=== PATIENT | male | born 1945 | race Caucasian/White ===

== ENCOUNTER 2017-04-20 16:09 | Outpatient (CLI) | payer BC | END 2017-04-20 16:10 | disposition critical access hospital (66) | LOC: EMS 16:09 | PROVIDERS: ATTEND Surgery | DX: M25.552 Pain in left hip (principal); W01.198A Fall on same level from slipping, tripping and stumbling with subsequent striking against other object, initial encounter; Y92.019 Unspecified place in single-family (private) house as the place of occurrence of the external cause | CPT/HCPCS: A0425; A0429 ==

== ENCOUNTER 2017-04-20 16:29 | Observation (INO) | payer BC ==
--- NOTE | 2017-04-20 17:41 | XRAY Preliminary Report ---
Exam: XR Hip w/Pelvis 2-3V LT IMPRESSION: No definite pelvis or left hip fracture. [facility] SITE ID: [id number]
--- NOTE | 2017-04-20 17:44 | XRAY Report ---
EXAM: LEFT HIP AND PELVIS RADIOGRAPHY EXAM DATE: 04/20/2017 05:13 PM. HISTORY: Fall, left lateral hip pain. COMPARISONS: None. TECHNIQUE: 1 view of the pelvis and 1 view of the hip. FINDINGS: Bones: Patient is slightly rotated. No obvious pelvis or hip fracture seen. Joints: The bilateral hip, pubis symphysis, and sacroiliac joints are preserved. Soft Tissues: Aortic, iliac and femoral artery calcifications noted. IMPRESSION: No definite pelvis or left hip fracture. [facility] Referring Provider Line: [phone] SITE ID: [id number]
[2017-04-20] MEDS ORDERED: ACETAMINOPHEN 325 MG TABLET PO STA (18:14)
[2017-04-20] MEDS ORDERED: ACETAMINOPHEN 325 MG TABLET PO ONE (18:19)
[2017-04-20] MEDS ORDERED: IBUPROFEN 600 MG TABLET PO STA (18:21)
[2017-04-20] MEDS ORDERED: IBUPROFEN 600 MG TABLET PO ONE (18:28)
--- NOTE | 2017-04-20 19:29 | XRAY Preliminary Report ---
Exam: XR Femur 2V LT IMPRESSION: Negative femur radiography. [facility] SITE ID: [id number]
--- NOTE | 2017-04-20 19:32 | XRAY Report ---
EXAM: LEFT FEMUR RADIOGRAPHY EXAM DATE: 04/20/2017 07:01 PM. CLINICAL HISTORY: Left leg pain. COMPARISON: None. TECHNIQUE: 2 views. FINDINGS: Bones: Normal. No fracture or bone lesion. Joints: The visualized hip and knee joints are normal. No effusions. Soft Tissues: There are vascular calcifications. IMPRESSION: Negative femur radiography. [facility] Referring Provider Line: [phone] SITE ID: [id number]
--- NOTE | 2017-04-20 19:45 | CT Report ---
EXAM: CT BONY PELVIS WITHOUT CONTRAST EXAM DATE: 04/20/2017 06:41 PM. CLINICAL HISTORY: L hip pain neg plain films, unable to walk. COMPARISON: None. TECHNIQUE: Thin-section axial images were acquired of the pelvis without contrast. Post-processing: C oronal and sagittal reformats. Other: None. In accordance with CT protocol optimization, one or more of the following dose reduction techniques w ere utilized for this exam: automated exposure control, adjustment of mA and/or KV based on patient s ize, or use of iterative reconstructive technique. FINDINGS: Bones: There is minimally displaced, coronally oriented fracture through the left iliac bone. Fractur e line extends inferiorly, with an oblique component extending to the acetabular roof and pubic root, and a coronal oblique oriented component through the acetabular roof and medial wall of the acetabul um. No evidence of obturator ring fracture. Sacroiliac Joints: There is fusion of the sacroiliac joints. Symphysis Pubis: There is osteitis pubis. Right Hip: No evidence of dislocation. Left Hip: dislocation. Musculature: There may be mild relative enlargement of the left gluteal musculature. Pelvic Cavity: There is an infrarenal, aortic aneurysm which measures 4.1 cm in AP diameter. There is a partially visualized disk is within the left abdomen IMPRESSION: 1. There is minimally displaced left acetabular fracture. There is a coronally oriented fracture exte nding to the iliac wing. At the acetabular roof, there is an obliquely oriented component of the frac ture which extends through the pubic root, and coronally oriented component extending through the med ial wall of the acetabulum. No obturator ring fracture is seen. Findings are likely closest to an ant erior column with posterior nate-transverse acetabular fracture. 2. There is no evidence of dislocation. 3. There is fusion of the sacroiliac joints. 4. There is an infrarenal abdominal aortic aneurysm which measures up to 4.0 cm in AP diameter. 5. There is a partially imaged viscus measuring approximately 6 x 5 cm within the left lower quadrant . This could represent partially visualized stomach, focal dilated loop of bowel, or complex renal cy st. Comparison with prior imaging is recommended for further characterization of these intra-abdomina l findings. [facility] Referring Provider Line: [phone] SITE ID: [id number]
[2017-04-20 20:23] LABS: BASOPHILS % (AUTO) 0.2 %; EOSINOPHILS % (AUTO) 0.2 %; HCT - HEMATOCRIT 39.2 % (42.0-52.0); HGB - HEMOGLOBIN 12.8 g/dL (14.0-18.0); LYMPHOCYTES # (AUTO) 1.8 10^3/uL (1.5-3.5); LYMPHOCYTES % (AUTO) 11.7 %; MEAN CORPUSCULAR HEMOGLOBIN 29.2 pg (27.0-31.0); MEAN CORPUSCULAR HGB CONC 32.5 g/dL (32.0-36.0); MEAN CORPUSCULAR VOLUME 89.8 fL (80.0-94.0); MEAN PLATELET VOLUME 7.9 fL (7.4-11.4); MONOCYTES # (AUTO) 1.1 10^3/uL (0.0-1.0); NEUTROPHILS # (AUTO) 12.4 10^3/uL (1.5-6.6); NEUTROPHILS % (AUTO) 80.9 %; RED BLOOD COUNT 4.37 10^6/uL (4.70-6.10); RED CELL DISTRIBUTION WIDTH 14.8 % (12.0-15.0); UNCORRECTED WHITE BLOOD COUNT 15.4 x10^3/uL; WHITE BLOOD COUNT 15.4 x10^3/uL (4.8-10.8)
[2017-04-20 20:35] LABS: ALBUMIN/GLOBULIN RATIO 1.2 (1.0-2.2); BILIRUBIN,TOTAL 0.2 mg/dL (0.2-1.0); CREATININE 0.8 mg/dL (0.6-1.2); TOTAL PROTEIN 6.5 g/dL (6.7-8.2)
[2017-04-20 20:38] LABS: PT - PROTHROMBIN TIME 11.1 secs (9.9-12.6)
--- NOTE | 2017-04-20 21:50 | ED Physician Documentation ---
History of Present Illness - Stated complaint Stated Complaint: L HIP PX - Chief complaint Chief Complaint: Ext Problem - History obtained from History obtained from: Patient - Additonal information Additional information: This patient is a 71-year-old man who currently lives at home. He is . He presents with a complaint of left-sided hip pain. He was in a garbage can trying to compress it down with his feet when he briefly by. He swatted at the [place] and fell outward landing on the left hip. He complains of left hip pain worse with movement and better with rest. He has been unable to ambulate on the left hip since the injury. He denies any injury to the head, neck, chest or abdomen. He denies any preceding medical symptoms. Review of systems: For pertinent positive and negatives in the review of systems please see the history of present illness, otherwise all other systems have been reviewed and are negative. Dragon disclaimer: Parts of this medical record were created using voice recognition technology. Because of the inherent limitations of this system, occasional same sounding word substitutions do occur and persist despite proofreading. Please read the document for context. Review of Systems Constitutional: denies: Fever, Myalgias Eyes: denies: Decreased vision Cardiac: denies: Chest pain / pressure, Palpitations Respiratory: reports: Cough. denies: Dyspnea GI: denies: Abdominal Pain, Abdominal Swelling PD PAST MEDICAL HISTORY - Past Medical History Past Medical History: Yes Cardiovascular: Hypertension, Coronary artery disease, Murmur, Other Respiratory: Other GI: Ulcers, Hepatitis HEENT: Chronic hearing loss - Past Surgical History Past Surgical History: No - Present Medications Home Medications: Ambulatory Orders Medication Instructions Recorded Confirmed Clopidogrel [Plavix] 75 mg PO DAILY 10/29/13 04/20/17 Lisinopril [Zestril] 10 mg PO DAILY 10/29/13 04/20/17 Pantoprazole Sodium [Protonix] 40 mg PO DAILY 10/29/13 04/20/17 Rosuvastatin [Crestor] 20 mg PO QPM 10/29/13 04/20/17 Aspirin [Aspir 81] 81 mg PO DAILY 11/01/13 04/20/17 - Allergies Allergies/Adverse Reactions: Allergies Allergy/AdvReac Type Severity Reaction Status Date / Time No Known Drug Allergies Allergy Verified 04/20/17 16:46 - Social History Does the pt smoke?: Yes Smoking Status: Current every day smoker Does the pt drink ETOH?: No Does the pt have substance abuse?: No - Immunizations Immunizations are current?: Yes - POLST Patient has POLST: No PD ED PE NORMAL - Vitals Vital signs reviewed: Yes - General General: Alert and oriented X 3, No acute distress, Well developed/nourished, Other (Thin male no apparent distress.) - HEENT HEENT: Atraumatic, PERRL - Neck Neck: Supple, no meningeal sign - Cardiac Cardiac: RRR - Respiratory Respiratory: No respiratory distress, Clear bilaterally - Abdomen Abdomen: Normal bowel sounds, Non tender, Non distended - Back Back: No CVA TTP - Derm Derm: Normal color, Warm and dry, No rash, Other - Extremities Extremities: Other (On examination there is some tenderness of the left lateral hip. Range of motion elicits some pain. There is no shortening of the leg on examination) - Neuro Neuro: Alert and oriented X 3, batch maker 2-12 intact, No motor deficit, No sensory deficit - Psych Psych: Normal mood, Normal affect Results - Vitals Vitals: Vital Signs - 24 hr 04/20/17 04/20/17 16:33 21:47 Temperature 36.8 C 37.0 C Heart Rate 80 76 Respiratory 16 18 Rate Blood Pressure 117/95 H 142/74 H O2 Saturation 96 98 Oxygen O2 Source Room air - Labs Labs: Laboratory Tests 04/20/17 04/20/17 04/20/17 20:15 20:15 20:15 WBC 15.4 H RBC 4.37 L Hgb 12.8 L Hct 39.2 L MCV 89.8 MCH 29.2 MCHC 32.5 RDW 14.8 Plt Count 240 MPV 7.9 Neut # 12.4 H Lymph # 1.8 Atkinson # 1.1 H Eos # 0.0 Baso # 0.0 Absolute Nucleated RBC 0.01 Nucleated RBCs 0.0 PT 11.1 INR 1.0 Sodium 138 Potassium 4.0 Chloride 102 Carbon Dioxide 28 Anion Gap 8.0 BUN 14 Creatinine 0.8 Estimated GFR (MDRD) 95 Glucose 161 H Calcium 9.0 Total Bilirubin 0.2 AST 18 ALT 13 Alkaline Phosphatase 103 Total Protein 6.5 L Albumin 3.5 Globulin 3.0 Albumin/Globulin Ratio 1.2 Lipase 12 L PD MEDICAL DECISION MAKING - ED course Complexity details: reviewed old records ED course: Patient is a 71-year-old male who fell on his left hip. Although he has no leg length discrepancy there is some pain on range of motion testing. I had hoped that he a greater trochanteric contusion. Plain films of the pelvis and hip were ordered and there is no evidence of any obvious abnormality. We tried to get the patient up to stand but he is reticent to do so which is suggesting that there is a more serious underlying injury. CT of the pelvis was done the CT scan shows a nondisplaced anterior acetabular fracture. The case was discussed with orthopedics transportation lead Dr. Ware. Who feels that the patient probably will need admission and placement based on the injury. He will probably need long-term nonweightbearing status. The patient was agreeable to be admitted. I discussed the case with the hospitalist who will see the patient and will attempt admission and hopefully uneventful transfer to a acute care facility. The was also found to have incidental 4 cm intra-abdominal aneurysm. Chest x-ray shows no acute intrathoracic disease and EKG shows normal sinus rhythm with left bundle branch block and PVCs. Disposition: Admission Clinical impression: 1. Left sided anterior column acetabular fracture Departure - Departure Disposition: ED Place in Observation Discharge Date/Time: 04/20/17 23:03
--- NOTE | 2017-04-20 22:08 | XRAY Preliminary Report ---
Exam: XR Chest 1 View IMPRESSION: 1. Large lung volumes with borderline heart size. 2. No acute abnormality seen. [facility] SITE ID: [id number]
--- NOTE | 2017-04-20 22:11 | XRAY Report ---
EXAM: CHEST RADIOGRAPHY EXAM DATE: 04/20/2017 09:50 PM. CLINICAL HISTORY: Fall, acetabular fracture. Preoperative exam for fracture repair. COMPARISON: 07/07/2009. TECHNIQUE: 1 view. FINDINGS: Lungs/Pleura: Large lung volumes. No alveolar consolidation or pleural effusion. No pneumothorax. Mediastinum: Heart size upper normal. Aortic atherosclerosis. Other: Thoracic dextroscoliosis. Surgical clips at the epigastric area. IMPRESSION: 1. Large lung volumes with borderline heart size. 2. No acute abnormality seen. [facility] Referring Provider Line: [phone] SITE ID: [id number]
[2017-04-20] MEDS ORDERED: ONDANSETRON ODT 4 MG TABLET TL PRN (22:14)
[2017-04-20] MEDS ORDERED: TEMAZEPAM 15 MG CAPSULE PO PRN (22:14)
[2017-04-20] MEDS ORDERED: SODIUM CHLORIDE FLUSH 0.9% 10 ML SYRINGE IVP PRN (22:14)
[2017-04-20] MEDS ORDERED: MORPHINE 2 MG/ML CARPUJECT IVP PRN (22:14)
[2017-04-20] MEDS ORDERED: oxyCODONE 5 MG TABLET PO PRN (22:14)
[2017-04-20] MEDS ORDERED: ONDANSETRON 4 MG/2 ML VIAL IVP PRN (22:14)
[2017-04-21] MEDS: ACETAMINOPHEN 325 MG TABLET PO SCH ×3 (00:22→10:57)
[2017-04-21] MEDS: ENOXAPARIN 40 MG/0.4 ML SYRINGE SUBQ SCH ×2 (00:23→08:36)
--- NOTE | 2017-04-21 03:41 | HISTORY & PHYSICAL EXAMINATION ---
DATE OF ADMISSION: 04/20/2017 PRIMARY CARE PROVIDER: Tony Peraza MD ADMITTING PROVIDER: Lakeshia Pa MD CHIEF COMPLAINT: Inability to ambulate after falling off a garbage can. HISTORY OF PRESENT ILLNESS: He is a 71-year-old white male who stands on his garbage every Friday nig ht to compress it into the garbage can, to be able to eat more in. His has warned him repeatedly to stop doing that because one of the times the garbage can is going to tip over and he was going to fall. He did so tonight. Landed on his side, and ever since then, it hurts to walk using his left le g. He does have a history of osteoporosis with a vertebral compression fracture in 2013. The vertebra l compression fracture was from lifting a lawnmower that had gone downhill, and he tried to lift it u p out of the shrubbery. He had a TENS unit for that. PSA were normal. No serum protein electrophoresi s was done at that time, and it was felt to be a simple vertebral compression fracture from an osteop orosis. With this fall, he was brought to the emergency room by his family. He has a left acetabular fracture. Dr. Ware, Orthopedics, has reviewed the films with the ER. He is not a surgical candidate. W e are placing him in observation status for pain management control, PT, OT evaluation to assess with this patient's needs to be in the outpatient setting. PAST MEDICAL HISTORY: 1. A small heart attack in 1995 with subsequent cardiomyopathy. The and son feel that Dad did no t have a heart attack and that he had "just a cardiomyopathy." Over time, his ejection fraction becam e normal. An echocardiogram done July 2009 while being admitted for stroke was with a normal ejec tion fraction and no valvular heart disease. 2. Peripheral vascular disease with diminished circulation to the legs and a leg ulcer in the past. 3. Interstitial lung disease but no history of COPD. 4. Prior history of stroke 07/2009, left occipital ischemic stroke. Presented as sudden seizure, subs equent blurred vision. Had quite a bit of memory loss, had to learn how to walk again, but has had no residuals according to the family other than mild memory loss. He was on Dilantin and off medication s since October 2013. EEG was negative in 2013 in evaluation. 5. Peptic ulcer disease with massive GI hemorrhage in 1984. He had a Billroth-II and an anastomosis. He received quite a bit of blood transfusions at that time. He had microcytic anemia again in 2013 an d was evaluated with an EGD and colonoscopy in 10/2013. Colonoscopy had a benign tubular adenoma. EGD showed a stomach remnant and an anastomosis that were incredibly friable, but biopsies were negative . Small bowel was negative for celiac disease. He is to be remaining on proton pump inhibitors. No no nsteroidal therapy. He can stand his Plavix. If he has further bleeding, he was to be on Carafate. 6. Hypertension. 7. Hepatitis C with abnormal function studies seen on 2005 pneumonia admission. Subsequent evaluation showed a normal AFP, normal ultrasound and he has felt to have prior infection with Hep C, but not c urrently infected. 8. Benign prostatic hypertrophy on Flomax. 9. Vertebral compression fracture after lifting a lawnmower. 10. Infrarenal abdominal aortic aneurysm at 4.4 to 4.5 cm. 11. Pneumonia 2005. ALLERGIES: NO KNOWN DRUG ALLERGIES. MEDICATIONS: List per Dr. Peraza's office is. 1. Plavix 75 mg a day. 2. Aspirin 81 mg a day. 3. Lisinopril 20 mg a day. 4. Crestor 20 mg a day. 5. Protonix 40 mg a day. 6. Uroxatral 10 mg daily. 7. Ferrous gluconate 1 tablet twice a day. 8. Vitamin D 1 tablet daily. 9. Most recently was on Debrox for cerum problems. For this most recent visit, Dr. Peraza was reviewing his medication list and realized that none had been filled for probably 2 years. The patient stated he had been noncompliant with medications and m ost recently has only resumed, as far as knows, Lisinopril and Crestor. He is not taking anythin g else including the Plavix. SOCIAL HISTORY: He smokes anywhere from 0.5 to 1 pack per day since the age of 18[address] [facility] . [place] They have 1 son. He has no history of alcohol abuse. Denies any history of recreational substance abuse. He currently does n ot drive because his car has been broken down, but family is pretty relieved. Visual problems lead [facility] to be alarmed when he drives too much. FAMILY HISTORY: Father of lung cancer. He at age 77. Mom at age 75 of multiple medical problems including lung disease and poor health. One brother, he does not know any more. One sister of diabetic complications at the age of 60. His son is healthy. REVIEW OF SYSTEMS GENERAL: Shows him to be a generally stubborn, very picky eater, white male who does not want to take medicines and continues to smoke. ENT: Blurred vision ever since his stroke. His eyeball deviates. He has not had any problems with spe ech or swallowing since the stroke. Deaf and wears hearing aids. PULMONARY: Chronic daily cough, nonproductive. Both son and daughter, feel that he is not short of br eath from coughing or lung disease. No hemoptysis. CARDIAC: No problems ever since he had that cardiomyopathy. Denies edema, orthopnea, chest pain or pa lpitations. JOINTS: His main problem: Back hurts, joints are stiff, hip hurts. SKIN: No new lesions. No new bruises. PSYCHIATRIC: Described as very, very stubborn. says that you cannot make him do anything. She do ubts that he will cooperate with physical therapy and occupational therapy. CENTRAL NERVOUS SYSTEM: Seizures and syncope with a stroke in 2008. None since. Mild memory loss. It was moderate in the past, but it has recovered remarkably. PHYSICAL EXAMINATION: VITAL SIGNS: On examination, temperature is 36.3, pulse is 67, blood pressure 149/73, respirations 16 , 93% on room air. GENERAL: He is an exceedingly slender, middle aged white male who looks older than stated age, in no acute distress, as long as he is not standing. As he sits in the gurney in the emergency room, he is quite comfortable. HEAD AND NECK: Shows him to be moderately deaf, full head of hair, low, hoarse voice. No facial asymm etry. Tongue midline, no fasciculations. NECK: Shotty adenopathy with radiated carotid bruits from the heart. CARDIAC: Has a regular rate and rhythm with a systolic ejection murmur. LUNGS: Very quiet with diminished breath sounds throughout without crackles, rhonchi, or wheezing. No increased respiratory effort. No respiratory distress. ABDOMEN: Soft, nontender. He has an incision that is healed closed without hernia. No masses. Normal bowel sounds. Bilateral femoral bruits present. EXTREMITIES: Knobby deformities of osteoarthritis without clubbing, cyanosis, or edema. NEUROLOGICAL: He is deaf, but alert and oriented to person, place and time. No other cranial nerve de ficit, with one not tested. No focal loss of strength. I am not having him stand. He does not have tr emors. Hand grasp strength is normal and plantar and dorsiflexion strength testing is normal. LABORATORIES: CMP is normal except for a random glucose of 161. White cell count is 15.4, hemoglobin 12.8, hematocrit 39.2, MCV 89. When he was anemic with his EGD and colonoscopy in 2013, his hematocri t was 27. INR is 1. Hip/pelvis x-ray, pelvic CT, chest x-ray confirmed the acetabular fracture. An infrarenal aortic aneu rysm. Large lung volumes, but no infiltrate. ASSESSMENT/PLAN: 1. Left acetabular fracture associated with #2. We will place in observation for pain management. Hav e PT and OT assess him in the morning and teach him appropriate use of nonweightbearing on the nonaff ected leg. Will need to be assessed for durable medical goods. procurement services manager will need to sit down and talk to the patient as will case management to help them make the best decision with regards to w here he needs to go. Whether it is with home care or to a [facility] facility. 2. Fall from garbage can. 3. Acute pain. Tylenol fixed dosing, Oxycodone p.r.n., no nonsteroidal therapy because of his ulcer d isease. 4. Tobacco abuse. His said there is no point in even discussing stopping smoking with him. He block s been told before, especially because of his stroke and heart history, but refuses to do so. Neverth eless nicotine patch offered to the patient, declined at this time. The patient also counseled to erin vargas. 5. Personal history of noncompliance. Counseled on the importance of risk reduction with regard to bl ood pressure, lipids and stopping smoking. To take his medications to reduce his risk of stroke or he art attack. At this time, we will try and resume all the medications indicated including the Plavix, lisinopril and statin. His other medical problems at this time appears stable and compensated as noted from the history of p resent illness. He does have a random elevated glucose. We will check A1c. JOB #: [id number] EXT JOB #:[id number]
[2017-04-21] MEDS ORDERED: SODIUM CHLORIDE FLUSH 0.9% 10 ML SYRINGE IVP SCH (06:00)
[2017-04-21 06:05] LABS: HEMOGLOBIN A1C 0.61 g/dL
[2017-04-21] MEDS ORDERED: PANTOPRAZOLE 40 MG TABLET PO SCH (07:00)
[2017-04-21] MEDS ORDERED: CLOPIDOGREL 75 MG TABLET PO SCH (09:00)
[2017-04-21] MEDS ORDERED: LISINOPRIL 5 MG TABLET PO SCH (09:00)
[2017-04-21] MEDS ORDERED: POLYETHYLENE GLYCOL 3350 17 GM PACKET PO SCH (09:00)
--- NOTE | 2017-04-21 11:11 | Discharge Plan ---
Discharge Plan Disposition: 01 Home, Self Care Diet: Regular Activity Restrictions: Non weight bearing LLE Shower Restrictions: No Driving Restrictions: No Assistance Devices: Walker Weight Bearing: No Weight (On Left leg x1wk) Additional Instructions or Follow Up instructions: You had a left acetabulum fracture and should be non weight bearing on that leg for the next week. You have been prescribed a walker and should use it at home. Please follow up with your PCP in one week and you maybe referred to orthopedics after that. No Smoking: If you smoke, Please STOP! Call for help.
[2017-04-21 11:20] LABS: BILIRUBIN,URINE NEGATIVE (NEGATIVE)
[2017-04-21 12:14] LABS: UR CULTURE IF IND NOT INDICATED; WBC,URINE 0-3 /HPF (0-3)
--- NOTE | 2017-04-21 12:29 | DISCHARGE SUMMARY ---
Discharge Summary Admit Date: 04/20/17 Discharge Date: 04/21/17 Discharging Provider: Tobias Marin MD Primary Care Provider: Tony Peraza MD Code Status: Attempt Resuscitation Condition at Discharge: Good Discharge Disposition: 01 Home, Self Care - DIAGNOSES Admission Diagnoses: 1. Left acetabular fracture 2. Fall from garbage can 3. Acute pain 4. Tobacco abuse 5. Personal history of noncompliance Discharge Diagnoses with Status of Each Condition: 1. Left acetabular fracture 2. Tobacco abuse - HPI History of Present Illness: The patient is a 71-year-old white male who stands on his garbage every Friday night to compress it and to the garbage can, to be able to get more in. His has warned him repeatedly to stop doing that because one of these times the garbage can is going to tip over and he is going to fall. He did so tonight. Landed on his side, and ever since then, it hurts to walk using his left leg. He does have a history of osteoporosis with a vertebral compression fracture in 2013. The vertebral compression fracture was from lifting a lawnmower that had gone downhill, and he tried to lift it up out of the shrubbery. He had a TENS unit for that. He had a normal PSA, serum protein electrophoresis at that time and it was felt to be a simple vertebral compression fracture from osteoporosis. With this fall he was brought to the emergency department by his family. He has a left acetabular fracture. Dr. Ware, orthopedics, has reviewed the films in the emergency department. He is not a surgical candidate. We are placing him in observation status for pain management control, PT, OT evaluation to assess with the patient's needs in the outpatient setting. - HOSPITAL COURSE Hospital Course: The patient was placed in observation for a left acetabular fracture do to intractable pain and difficulty ambulating. The patient was seen by PT and it was determined the patient could go home. He was told to not bear weight on his left leg for at least one week. He will then followup with his primary care physician and possibly with orthopedics if needed. The patient was given a front wheeled walker. The physical therapist had the patient walk up and down the halls she also had him do stairs and the patient was stable and did well. The patient was discharged home he was told to use Tylenol and Motrin for pain. Patient stated there was no pain when he was sitting still and not bearing weight on the left leg. He stated that as soon he would bear any weight on the left leg there was excruciating pain. Again the patient was told not to bear weight on his left leg for at least one week. - ALLERGIES Allergies/Adverse Reactions: Allergies Allergy/AdvReac Type Severity Reaction Status Date / Time No Known Drug Allergies Allergy Verified 04/20/17 16:46 - MEDICATIONS Home Medications: Ambulatory Orders Medication Instructions Recorded Confirmed Clopidogrel [Plavix] 75 mg PO DAILY 10/29/13 10/29/13 Aspirin [Aspir 81] 81 mg PO DAILY 11/01/13 11/01/13 Lisinopril [Zestril] 20 mg PO BID 04/21/17 04/21/17 Pantoprazole [Protonix] 40 mg PO QDAC 04/21/17 04/21/17 Rosuvastatin Calcium [Crestor] 20 mg PO QPM 04/21/17 04/21/17 - PHYSICAL EXAM AT DISCHARGE General Appearance: positive: No acute distress, Alert Eyes Bilateral: positive: Normal inspection, PERRL, EOMI, No lid inflammation, Conjunctivae nml, No scleral icterus ENT: positive: ENT inspection nml, Pharynx nml, No signs of dehydration. negative: Purulent nasal drainage, Pharyngeal erythema, Oral lesions Neck: positive: Nml inspection, Thyroid nml, No JVD, Trachea midline. negative : Thyromegaly, Lymphadenopathy (R), Lymphadenopathy (L), Carotid bruit, Tracheal deviation Respiratory: positive: Chest non-tender, No respiratory distress, Breath sounds nml. negative: Wheezes, Rales, Rhonchi Cardiovascular: positive: Regular rate & rhythm, No murmur, No gallop Peripheral Pulses: positive: 2+ Abdomen: positive: Non-tender, No organomegaly, Nml bowel sounds, No distention Back: positive: Nml inspection. negative: CVA tenderness (R), CVA tenderness (L ) Skin: positive: Color nml, No rash, Warm. negative: Cyanosis, Pallor Extremities: positive: No pedal edema, Other (Left lower extremity decreased range of motion around the hip with tenderness around the left acetabulum. No swelling, no erythema.) Neurologic/Psychiatric: positive: Oriented x3, CN's nml (2-12), Motor nml, Sensation nml, Mood/affect nml - LABS Result Diagrams: 04/20/17 20:15 04/20/17 20:15 Other Lab Results: Laboratory Results WBC 15.4 x10^3/uL (4.8-10.8) H 04/20/17 20:15 RBC 4.37 10^6/uL (4.70-6.10) L 04/20/17 20:15 Hgb 12.8 g/dL (14.0-18.0) L 04/20/17 20:15 Hct 39.2 % (42.0-52.0) L 04/20/17 20:15 MCV 89.8 fL (80.0-94.0) 04/20/17 20:15 MCH 29.2 pg (27.0-31.0) 04/20/17 20:15 MCHC 32.5 g/dL (32.0-36.0) 04/20/17 20:15 RDW 14.8 % (12.0-15.0) 04/20/17 20:15 Plt Count 240 10^3/uL (130-450) 04/20/17 20:15 MPV 7.9 fL (7.4-11.4) 04/20/17 20:15 Neut # 12.4 10^3/uL (1.5-6.6) H 04/20/17 20:15 Lymph # 1.8 10^3/uL (1.5-3.5) 04/20/17 20:15 [place] # 1.1 10^3/uL (0.0-1.0) H 04/20/17 20:15 Eos # 0.0 10^3/uL (0.0-0.7) 04/20/17 20:15 Baso # 0.0 10^3/uL (0.0-0.1) 04/20/17 20:15 Absolute Nucleated RBC 0.01 x10^3/uL 04/20/17 20:15 Nucleated RBCs 0.0 /100WBC 04/20/17 20:15 PT 11.1 secs (9.9-12.6) 04/20/17 20:15 INR 1.0 (0.8-1.2) 04/20/17 20:15 Sodium 138 mmol/L (135-145) 04/20/17 20:15 Potassium 4.0 mmol/L (3.5-5.0) 04/20/17 20:15 Chloride 102 mmol/L (101-111) 04/20/17 20:15 Carbon Dioxide 28 mmol/L (21-32) 04/20/17 20:15 Anion Gap 8.0 (6-13) 04/20/17 20:15 BUN 14 mg/dL (6-20) 04/20/17 20:15 Creatinine 0.8 mg/dL (0.6-1.2) 04/20/17 20:15 Estimated GFR (MDRD) 95 (>89) 04/20/17 20:15 Glucose 161 mg/dL (70-100) H 04/20/17 20:15 Glycated Hemoglobin 6.2 % (4.6-6.2) 04/21/17 05:30 Estim Average Glucose 131 (70-100) H 04/21/17 05:30 Calcium 9.0 mg/dL (8.5-10.3) 04/20/17 20:15 Total Bilirubin 0.2 mg/dL (0.2-1.0) 04/20/17 20:15 AST 18 IU/L (10-42) 04/20/17 20:15 ALT 13 IU/L (10-60) 04/20/17 20:15 Alkaline Phosphatase 103 IU/L (42-121) 04/20/17 20:15 Total Protein 6.5 g/dL (6.7-8.2) L 04/20/17 20:15 Albumin 3.5 g/dL (3.2-5.5) 04/20/17 20:15 Globulin 3.0 g/dL (2.1-4.2) 04/20/17 20:15 Albumin/Globulin Ratio 1.2 (1.0-2.2) 04/20/17 20:15 Lipase 12 U/L (22-51) L 04/20/17 20:15 Urine Color YELLOW 04/21/17 11:00 Urine Clarity CLEAR (CLEAR) 04/21/17 11:00 Urine pH 6.0 PH (5.0-7.5) 04/21/17 11:00 Ur Specific [place] 1.020 (1.002-1.030) 04/21/17 11:00 Urine Protein NEGATIVE mg/dL (NEGATIVE) 04/21/17 11:00 Urine Glucose (UA) NEGATIVE mg/dL (NEGATIVE) 04/21/17 11:00 Urine Ketones NEGATIVE mg/dL (NEGATIVE) 04/21/17 11:00 Urine Occult Blood NEGATIVE (NEGATIVE) 04/21/17 11:00 Urine Nitrite NEGATIVE (NEGATIVE) 04/21/17 11:00 Urine Bilirubin NEGATIVE (NEGATIVE) 04/21/17 11:00 Urine Urobilinogen 0.2 (NORMAL) E.U./dL (NORMAL) 04/21/17 11:00 Ur Leukocyte Esterase NEGATIVE (NEGATIVE) 04/21/17 11:00 Urine RBC 0-5 /HPF (0-5) 04/21/17 11:00 Urine WBC 0-3 /HPF (0-3) 04/21/17 11:00 Ur Squamous Epith Cells FEW Squamous (<= Few) 04/21/17 11:00 Urine Bacteria None Seen /HPF (None Seen) 04/21/17 11:00 Urine Casts 0-2 Hyaline Casts /LPF 04/21/17 11:00 Urine Mucus Moderate Strands 04/21/17 11:00 Urine Culture Comments NOT INDICATED 04/21/17 11:00 - DIAGNOSTIC IMAGING Diagnostic Imaging Results: Final report reviewed Diagnostic Imaging Results Comments: Hip/pelvis x-ray, pelvic CT, chest x-ray confirmed the acetabular fracture. An infrarenal aortic aneurysm. Large lung volumes, but no infiltrates. - FOLLOW UP Follow Up: Patient was prescribed a front wheeled walker. He was told not to bear weight on his left leg for at least one week. He will followup with his primary care physician in one week. - TIME SPENT Time Spent in Discharge (Minutes): 35
[2017-04-21 15:00] VITALS: BP 103/65
[2017-04-21] MEDS ORDERED: ROSUVASTATIN 20 MG PO SCH (21:00)
[2017-04-21] MEDS ORDERED: ATORVASTATIN 40 MG TABLET PO SCH (21:00)
== END 2017-04-21 13:05 | disposition home or self-care (01) ==
LOC: EDUNIT# → ED 16:29 → OBS 22:14
PROVIDERS: ADMIT Specialist; ATTEND Internal Medicine
DX: S32.402A Unspecified fracture of left acetabulum, initial encounter for closed fracture (principal); W17.89XA Other fall from one level to another, initial encounter; I11.9 Hypertensive heart disease without heart failure; F17.210 Nicotine dependence, cigarettes, uncomplicated; N40.0 Benign prostatic hyperplasia without lower urinary tract symptoms; I73.9 Peripheral vascular disease, unspecified; I71.4 Abdominal aortic aneurysm, without rupture; Y93.E9 Activity, other interior property and clothing maintenance; Y92.008 Other place in unspecified non-institutional (private) residence as the place of occurrence of the external cause; Y99.8 Other external cause status; Z79.02 Long term (current) use of antithrombotics/antiplatelets; Z79.82 Long term (current) use of aspirin; Z79.899 Other long term (current) drug therapy; I25.2 Old myocardial infarction; Z86.73 Personal history of transient ischemic attack (TIA), and cerebral infarction without residual deficits; Z86.19 Personal history of other infectious and parasitic diseases; Z91.14 Patient's other noncompliance with medication regimen
CPT/HCPCS: 36415; 71010; 72192; 73502; 73552; 80053; 81001; 83036; 83690; 85025; 85610; 93005; 96372; 97116; 97162; 99283; 99284; A9270; G0378; G8978; G8979; G8980; J1650; 87086

== ENCOUNTER 2019-04-06 08:55 | Outpatient (CLI) | payer BC, OTHER ==
[2019-04-06 12:19] LABS: BASOPHILS # (AUTO) 0.1 10^3/uL (0.0-0.1); BASOPHILS % (AUTO) 0.5 %; EOSINOPHILS # (AUTO) 0.2 10^3/uL (0.0-0.7); EOSINOPHILS % (AUTO) 1.7 %; HGB - HEMOGLOBIN 9.5 g/dL (14.0-18.0); LYMPHOCYTES # (AUTO) 5.8 10^3/uL (1.5-3.5); MEAN CORPUSCULAR HEMOGLOBIN 25.1 pg (27.0-31.0); MEAN CORPUSCULAR HGB CONC 29.5 g/dL (32.0-36.0); MEAN CORPUSCULAR VOLUME 85.2 fL (80.0-94.0); MONOCYTES # (AUTO) 1.4 10^3/uL (0.0-1.0); MONOCYTES % (AUTO) 10.8 %; NEUTROPHILS # (AUTO) 5.4 10^3/uL (1.5-6.6); NEUTROPHILS % (AUTO) 41.6 %; PLT - PLATELET COUNT 350 10^3/uL (130-450); RED BLOOD COUNT 3.78 10^6/uL (4.70-6.10); RED CELL DISTRIBUTION WIDTH 17.6 % (12.0-15.0); WHITE BLOOD COUNT 12.9 x10^3/uL (4.8-10.8)
[2019-04-06 12:27] LABS: ALBUMIN 3.5 g/dL (3.2-5.5); ALBUMIN/GLOBULIN RATIO 1.2 (1.0-2.2); BILIRUBIN,TOTAL 0.5 mg/dL (0.2-1.0); CREATININE 0.6 mg/dL (0.6-1.2); TOTAL PROTEIN 6.5 g/dL (6.7-8.2)
[2019-04-06 13:10] LABS: PLATELET ESTIMATE, MANUAL NORMAL (130-450,000) (NORMAL); PLATELET MORPHOLOGY NORMAL APPEARANCE (NORMAL)
== END 2019-04-06 09:00 | disposition home or self-care (01) ==
LOC: LAB.N 08:55
PROVIDERS: ATTEND Internal Medicine Gastroenterology
DX: I10 Essential (primary) hypertension (principal); B19.20 Unspecified viral hepatitis C without hepatic coma; D50.9 Iron deficiency anemia, unspecified
CPT/HCPCS: 36415; 80053; 85025

== ENCOUNTER 2019-04-13 08:40 | Day surgery (SDC) | payer OTHER ==
[2019-04-13] MEDS ORDERED: LACTATED RINGERS 1,000 ML IV ONE (09:13)
[2019-04-13] MEDS ORDERED: LIDO GARGLE 30 ML BOTTLE ONE (09:41)
[2019-04-13] MEDS ORDERED: fentaNYL 250 MCG/5 ML VIAL IVP ONE (09:51)
[2019-04-13] MEDS ORDERED: MIDAZOLAM 2 MG/2 ML VIAL IVP ONE (09:51)
[2019-04-13] MEDS ORDERED: LIDO GARGLE 30 ML BOTTLE PO ONE (09:56)
[2019-04-13 12:03] VITALS: BP 151/72
== END 2019-04-13 08:41 | disposition home or self-care (01) ==
LOC: SDS 08:40
PROVIDERS: ATTEND Internal Medicine Gastroenterology
PROC: 0DBK8ZZ Excision of Ascending Colon, Via Natural or Artificial Opening Endoscopic (ICD-10-PCS; 2019-04-13)
PROC: 0DB68ZX Excision of Stomach, Via Natural or Artificial Opening Endoscopic, Diagnostic (ICD-10-PCS; principal; 2019-04-13 10:00)
PROC: 0DBN8ZZ Excision of Sigmoid Colon, Via Natural or Artificial Opening Endoscopic (ICD-10-PCS; 2019-04-13 10:00)
DX: K29.70 Gastritis, unspecified, without bleeding (principal); D12.2 Benign neoplasm of ascending colon; D12.5 Benign neoplasm of sigmoid colon; K63.5 Polyp of colon; D50.9 Iron deficiency anemia, unspecified; F17.210 Nicotine dependence, cigarettes, uncomplicated; E78.5 Hyperlipidemia, unspecified; I10 Essential (primary) hypertension; J84.9 Interstitial pulmonary disease, unspecified; I73.9 Peripheral vascular disease, unspecified; M81.0 Age-related osteoporosis without current pathological fracture; G47.00 Insomnia, unspecified; H91.90 Unspecified hearing loss, unspecified ear; H53.9 Unspecified visual disturbance; B19.20 Unspecified viral hepatitis C without hepatic coma; I25.10 Atherosclerotic heart disease of native coronary artery without angina pectoris; N40.0 Benign prostatic hyperplasia without lower urinary tract symptoms; Z79.82 Long term (current) use of aspirin; Z79.02 Long term (current) use of antithrombotics/antiplatelets; Z86.73 Personal history of transient ischemic attack (TIA), and cerebral infarction without residual deficits; Z87.11 Personal history of peptic ulcer disease
CPT/HCPCS: 43239; 45380; 45385; 87081; A9270; J3010; J7120

== ENCOUNTER 2019-05-14 09:40 | Outpatient (CLI) | payer OTHER | END 2019-05-14 09:41 | disposition home or self-care (01) | LOC: RT 09:40 | PROVIDERS: ATTEND Internal Medicine Gastroenterology | DX: I10 Essential (primary) hypertension (principal); I25.10 Atherosclerotic heart disease of native coronary artery without angina pectoris; Z86.010 Personal history of colon polyps | CPT/HCPCS: 93005 ==

== ENCOUNTER 2021-02-07 08:00 | Outpatient (CLI) | payer OTHER ==
[2021-02-07 12:21] LABS: BASOPHILS # (AUTO) 0.1 10^3/uL (0.0-0.1); BASOPHILS % (AUTO) 0.6 %; EOSINOPHILS # (AUTO) 0.1 10^3/uL (0.0-0.7); EOSINOPHILS % (AUTO) 0.9 %; HCT - HEMATOCRIT 30.2 % (42.0-52.0); HGB - HEMOGLOBIN 8.5 g/dL (14.0-18.0); LYMPHOCYTES # (AUTO) 4.2 10^3/uL (1.5-3.5); LYMPHOCYTES % (AUTO) 49.6 %; MEAN CORPUSCULAR HEMOGLOBIN 20.2 pg (27.0-31.0); MEAN CORPUSCULAR HGB CONC 28.1 g/dL (32.0-36.0); MEAN CORPUSCULAR VOLUME 71.9 fL (80.0-94.0); MEAN PLATELET VOLUME 9.9 fL (7.4-11.4); MONOCYTES % (AUTO) 11.9 %; NEUTROPHILS # (AUTO) 3.1 10^3/uL (1.5-6.6); NEUTROPHILS % (AUTO) 36.8 %; PLT - PLATELET COUNT 363 10^3/uL (130-450); RED CELL DISTRIBUTION WIDTH 19.1 % (12.0-15.0); WHITE BLOOD COUNT 8.5 x10^3/uL (4.8-10.8)
[2021-02-07 12:38] LABS: ALBUMIN/GLOBULIN RATIO 1.2 (1.0-2.2); ALKALINE PHOSPHATASE 81 IU/L (42-121); ALT ALANINE AMINOTRANSFERASE 16 IU/L (10-60); AST ASPARTATE AMINOTRANSFERASE 20 IU/L (10-42); BILIRUBIN,TOTAL 0.4 mg/dL (0.2-1.0); BUN - BLOOD UREA NITROGEN 19 mg/dL (6-20); CALCIUM 9.3 mg/dL (8.5-10.3); CARBON DIOXIDE - CO2 28 mmol/L (21-32); CHLORIDE 102 mmol/L (101-111); CHOL/HDL RATIO 2.8 (<5.0); CHOLESTEROL 143 mg/dL; CREATININE 0.8 mg/dL (0.6-1.2); GFR - MDRD 94 (>89); GLUCOSE 111 mg/dL (70-100); HDL CHOLESTEROL 51 mg/dL; LDL CHOLESTEROL,CALCULATED 77 mg/dL; LDL/HDL RATIO 1.5 (<3.6); SODIUM 141 mmol/L (135-145); TOTAL PROTEIN 7.4 g/dL (6.7-8.2); TRIGLYCERIDES 74 mg/dL; VLDL CHOLESTEROL 15 mg/dL
[2021-02-07 12:42] LABS: THYROID STIMULATING HORMONE 2.6 uIU/mL (0.34-5.60)
[2021-02-07 12:58] LABS: ESTIMATED AVERAGE GLUCOSE 137 mg/dL (70-100); HEMOGLOBIN A1c% 6.4 % (4.27-6.07)
[2021-02-07 13:20] LABS: CREATININE,URINE 138.1 mg/dL; MICROALBUM/CREATININE RATIO,UR 35.5 ug/mg (<30.0); MICROALBUMIN,URINE 4.9 mg/dL (0-300.0)
[2021-02-09 22:22] LABS: HCV RNA QUANT RT PCR 936 IU/mL
== END 2021-02-07 23:59 | disposition home or self-care (01) ==
LOC: LAB.WCP 08:00
PROVIDERS: ATTEND Family Medicine
DX: E11.9 Type 2 diabetes mellitus without complications (principal); B19.20 Unspecified viral hepatitis C without hepatic coma
CPT/HCPCS: 36415; 80053; 80061; 82043; 82570; 83036; 83721; 84443; 85025; 87522

== ENCOUNTER 2021-02-16 08:22 | Outpatient (CLI) | payer OTHER ==
[2021-02-16 11:52] LABS: BASOPHILS # (AUTO) 0.1 10^3/uL (0.0-0.1); BASOPHILS % (AUTO) 0.5 %; EOSINOPHILS # (AUTO) 0.1 10^3/uL (0.0-0.7); EOSINOPHILS % (AUTO) 1.4 %; HCT - HEMATOCRIT 29.1 % (42.0-52.0); HGB - HEMOGLOBIN 8.2 g/dL (14.0-18.0); LYMPHOCYTES # (AUTO) 4.4 10^3/uL (1.5-3.5); LYMPHOCYTES % (AUTO) 43.5 %; MEAN CORPUSCULAR HEMOGLOBIN 20.1 pg (27.0-31.0); MEAN CORPUSCULAR HGB CONC 28.2 g/dL (32.0-36.0); MEAN CORPUSCULAR VOLUME 71.3 fL (80.0-94.0); MEAN PLATELET VOLUME 9.7 fL (7.4-11.4); MONOCYTES # (AUTO) 0.9 10^3/uL (0.0-1.0); MONOCYTES % (AUTO) 8.4 %; NEUTROPHILS # (AUTO) 4.6 10^3/uL (1.5-6.6); PLT - PLATELET COUNT 422 10^3/uL (130-450); RED BLOOD COUNT 4.08 10^6/uL (4.70-6.10); RED CELL DISTRIBUTION WIDTH 19.1 % (12.0-15.0); WHITE BLOOD COUNT 10.1 x10^3/uL (4.8-10.8)
[2021-02-16 12:14] LABS: ESTIMATED AVERAGE GLUCOSE 143 mg/dL (70-100); HEMOGLOBIN A1c% 6.6 % (4.27-6.07)
[2021-02-16 12:28] LABS: ALBUMIN 3.8 g/dL (3.2-5.5); ALBUMIN/GLOBULIN RATIO 1.3 (1.0-2.2); ALKALINE PHOSPHATASE 79 IU/L (42-121); ALT ALANINE AMINOTRANSFERASE 14 IU/L (10-60); AST ASPARTATE AMINOTRANSFERASE 17 IU/L (10-42); BILIRUBIN,TOTAL 0.3 mg/dL (0.2-1.0); BUN - BLOOD UREA NITROGEN 16 mg/dL (6-20); CALCIUM 9.2 mg/dL (8.5-10.3); CARBON DIOXIDE - CO2 28 mmol/L (21-32); CHLORIDE 100 mmol/L (101-111); CHOL/HDL RATIO 3.1 (<5.0); CHOLESTEROL 150 mg/dL; CREATININE 0.7 mg/dL (0.6-1.2); GFR - MDRD 109 (>89); GLUCOSE 109 mg/dL (70-100); HDL CHOLESTEROL 49 mg/dL; IRON < 6 ug/dL (45-182); LDL CHOLESTEROL,CALCULATED 86 mg/dL; LDL/HDL RATIO 1.8 (<3.6); POTASSIUM 3.9 mmol/L (3.5-5.0); SODIUM 137 mmol/L (135-145); TOTAL IRON BINDING CAPACITY 440 ug/dL (250-450); TOTAL PROTEIN 6.7 g/dL (6.7-8.2); TRANSFERRIN 314 mg/dL (180-329); TRIGLYCERIDES 74 mg/dL; VLDL CHOLESTEROL 15 mg/dL
[2021-02-16 12:29] LABS: THYROID STIMULATING HORMONE 1.69 uIU/mL (0.34-5.60)
[2021-02-16 12:32] LABS: FERRITIN 10.3 ng/mL (23.9-336.2)
[2021-02-16 12:33] LABS: CREATININE,URINE 37.7 mg/dL; MICROALBUM/CREATININE RATIO,UR 34.5 ug/mg (<30.0); MICROALBUMIN,URINE 1.3 mg/dL (0-300.0)
[2021-02-18 20:42] LABS: HCV RNA QUANT RT PCR 1220 IU/mL
== END 2021-02-16 23:59 | disposition home or self-care (01) ==
LOC: LAB.WCP 08:22
PROVIDERS: ATTEND Family Medicine
DX: E11.9 Type 2 diabetes mellitus without complications (principal); D64.9 Anemia, unspecified; B19.20 Unspecified viral hepatitis C without hepatic coma
CPT/HCPCS: 36415; 80053; 80061; 82043; 82570; 82728; 83036; 83540; 83721; 84443; 84466; 85025; 87522

== ENCOUNTER 2021-05-21 11:49 | Outpatient (CLI) | payer OTHER ==
[2021-05-21 18:07] LABS: BASOPHILS # (AUTO) 0.1 10^3/uL (0.0-0.1); BASOPHILS % (AUTO) 0.5 %; EOSINOPHILS # (AUTO) 0.1 10^3/uL (0.0-0.7); EOSINOPHILS % (AUTO) 1.2 %; HCT - HEMATOCRIT 42.4 % (42.0-52.0); HGB - HEMOGLOBIN 12.5 g/dL (14.0-18.0); LYMPHOCYTES % (AUTO) 47.3 %; MEAN CORPUSCULAR HEMOGLOBIN 26.2 pg (27.0-31.0); MEAN CORPUSCULAR HGB CONC 29.5 g/dL (32.0-36.0); MEAN CORPUSCULAR VOLUME 88.9 fL (80.0-94.0); MEAN PLATELET VOLUME 10.7 fL (7.4-11.4); MONOCYTES # (AUTO) 0.8 10^3/uL (0.0-1.0); NEUTROPHILS # (AUTO) 4.5 10^3/uL (1.5-6.6); NEUTROPHILS % (AUTO) 42.6 %; PLT - PLATELET COUNT 264 10^3/uL (130-450); RED BLOOD COUNT 4.77 10^6/uL (4.70-6.10); WHITE BLOOD COUNT 10.5 x10^3/uL (4.8-10.8)
[2021-05-21 18:08] LABS: SLIDE REVIEW? Indicated
[2021-05-21 18:11] LABS: ALBUMIN 3.9 g/dL (3.2-5.5); ALBUMIN/GLOBULIN RATIO 1.3 (1.0-2.2); BILIRUBIN,TOTAL 0.5 mg/dL (0.2-1.0); CALCIUM 9.2 mg/dL (8.5-10.3); CREATININE 0.7 mg/dL (0.6-1.2); POTASSIUM 4.2 mmol/L (3.5-5.0)
[2021-05-21 19:21] LABS: PLATELET ESTIMATE, MANUAL NORMAL (130-450,000) (NORMAL); PLATELET MORPHOLOGY NORMAL APPEARANCE (NORMAL)
== END 2021-05-21 23:59 | disposition home or self-care (01) ==
LOC: LAB.WCP 11:49
PROVIDERS: ATTEND Family Medicine
DX: B19.20 Unspecified viral hepatitis C without hepatic coma (principal); D64.9 Anemia, unspecified
CPT/HCPCS: 36415; 80053; 82728; 83540; 84466; 85025

== ENCOUNTER 2021-06-06 06:46 | Outpatient (CLI) | payer OTHER ==
--- NOTE | 2021-06-06 08:35 | Ultrasound Report ---
PROCEDURE: Abdomen Complete INDICATIONS: Hepatitis C, abdominal aortic aneurysm TECHNIQUE: Real-time scanning was performed of the abdominal and retroperitoneal organs, with image documentatio n. COMPARISON: 10/28/2013 FINDINGS: Liver: Mildly increased hepatic parenchymal echogenicity indicative of diffuse hepatocellular disease . No morphologic features of cirrhosis. Gallbladder: Normal. Biliary ducts: Dilated common bile duct measuring up to 11 mm in the mid segment and 7 mm at the dist al segment. Pancreas: Visualized portions of the pancreas are sonographically normal. Spleen: Spleen is normal in size and homogeneous in echotexture. Kidneys: Mildly increased renal echogenicity, recently seen in patients with hepatitis C. No shadowin g calculus or hydronephrosis. Aorta: The proximal abdominal aorta measures 3 cm. The distal abdominal aorta measures approximately 5 cm. Extensive aortic calcification is present. There is also concentric mural thrombus and presumab ly atherosclerotic plaque resulting in significant aortic narrowing. The common iliac arteries measur e up to 18 mm in maximum dimension. Iliacs: Proximal common iliac arteries are normal in caliber at less than 2.5 cm. IVC: Intrahepatic inferior vena cava is patent. Miscellaneous: No free abdominal fluid. IMPRESSION: Infrarenal abdominal aortic aneurysm measuring up to 5 cm, significantly increased in size when joel red with 11/05/[address] angiogram of the chest, abdomen, and pelvis should be considered if not already recently performed. Increased hepatic parenchymal echogenicity consistent with diffuse hepatocellular disorder such as th e provided history of hepatitis C. Reviewed by: Ritesh Andrade MD on 06/06/2021 8:33 AM PDT Approved by: Ritesh Andrade MD on 06/06/2021 8:33 AM PDT Station ID: [id number]
== END 2021-06-06 06:47 | disposition home or self-care (01) ==
LOC: DI 06:46
PROVIDERS: ATTEND Family Medicine
DX: B19.20 Unspecified viral hepatitis C without hepatic coma (principal); I71.4 Abdominal aortic aneurysm, without rupture; R93.2 Abnormal findings on diagnostic imaging of liver and biliary tract

== ENCOUNTER 2022-07-17 19:42 | Emergency (ER) | payer OTHER ==
[2022-07-17 20:18] LABS: BASOPHILS % (AUTO) 0.1 %; EOSINOPHILS % (AUTO) 0.1 %; HCT - HEMATOCRIT 35.3 % (42.0-52.0); LYMPHOCYTES # (AUTO) 4.5 10^3/uL (1.5-3.5); LYMPHOCYTES % (AUTO) 31.2 %; MEAN CORPUSCULAR HEMOGLOBIN 26.4 pg (27.0-31.0); MEAN CORPUSCULAR HGB CONC 31.2 g/dL (32.0-36.0); MEAN CORPUSCULAR VOLUME 84.9 fL (80.0-94.0); MEAN PLATELET VOLUME 10.3 fL (7.4-11.4); MONOCYTES # (AUTO) 1.2 10^3/uL (0.0-1.0); NEUTROPHILS # (AUTO) 8.7 10^3/uL (1.5-6.6); NEUTROPHILS % (AUTO) 60.1 %; PLT - PLATELET COUNT 248 10^3/uL (130-450); RED BLOOD COUNT 4.16 10^6/uL (4.70-6.10); WHITE BLOOD COUNT 14.4 x10^3/uL (4.8-10.8)
[2022-07-17 20:30] LABS: ALBUMIN 3.8 g/dL (3.2-5.5); ALBUMIN/GLOBULIN RATIO 1.3 (1.0-2.2); BILIRUBIN,TOTAL 1.5 mg/dL (0.2-1.0); CALCIUM 9.1 mg/dL (8.5-10.3); CREATININE 1.4 mg/dL (0.6-1.2); POTASSIUM 4.8 mmol/L (3.5-5.0); TOTAL PROTEIN 6.7 g/dL (6.7-8.2)
--- NOTE | 2022-07-17 20:57 | ED Physician Documentation ---
PD HPI CHEST PAIN - Stated complaint Stated Complaint: SOA,L SIDE WEAKNESS - Chief complaint Chief Complaint: Cardiac - History obtained from History obtained from: Patient, Family (spouse (in ED at bedside)) - History of Present Illness Timing - onset: How many days ago (3) Timing - details: Gradual onset, Waxing and waning Quality: Pain Location: Left chest Radiation: Left upper extremity Improved by: Nothing Worsened by: Other (no exacerbating factors) Associated symptoms: Shortness of air, General Weakness. No: Diaphoresis, Nausea, Vomiting, Feeling faint / dizzy, Cough Similar symptoms before: Has not had sx before Recently seen: Not recently seen - Additional information Additional information: c/o 3 days of dyspnea, "no stamina whatsoever" (per patient), poor appetite, and intermittent left upper chest pain radiating to left shoulder. H/O [place] 2006, cardiomyopathy, CVA 2008. Review of Systems Constitutional: denies: Fever, Chills, Sweats Cardiac: reports: Chest pain / pressure. denies: Palpitations, Pedal edema, Calf pain Respiratory: reports: Dyspnea. denies: Cough, Wheezing GI: reports: Reviewed and negative : denies: Dysuria, Frequency Skin: reports: Reviewed and negative Musculoskeletal: reports: Reviewed and negative Neurologic: reports: Generalized weakness PD PAST MEDICAL HISTORY - Past Medical History Cardiovascular: Hypertension, Coronary artery disease, Murmur, Other Respiratory: Other GI: Ulcers, Hepatitis HEENT: Chronic hearing loss - Past Surgical History Past Surgical History: No - Present Medications Home Medications: Ambulatory Orders Medication Instructions Recorded Confirmed Clopidogrel [Plavix] 75 mg PO DAILY 10/29/13 07/17/22 Lisinopril [Zestril] 20 mg PO BID 04/21/17 07/17/22 Rosuvastatin Calcium [Crestor] 20 mg PO DAILY 04/21/17 07/17/22 - Allergies Allergies/Adverse Reactions: Allergies Allergy/AdvReac Type Severity Reaction Status Date / Time No Known Drug Allergies Allergy Verified 07/17/22 19:55 - Social History Does the pt smoke?: Yes Smoking Status: Current every day smoker Does the pt drink ETOH?: No Does the pt have substance abuse?: No - Immunizations Immunizations are current?: Yes - POLST Patient has POLST: No PD ED PE NORMAL - Vitals Vital signs reviewed: Yes - General General: Alert and oriented X 3, No acute distress, Well developed/nourished - HEENT HEENT: Moist mucous membranes - Neck Neck: Supple, no meningeal sign - Cardiac Cardiac: RRR - Respiratory Respiratory: No respiratory distress, Other (bibasilar rales) - Abdomen Abdomen: Soft, Non tender - Derm Derm: Normal color, Warm and dry PD ED PE EXPANDED - Cardiac Cardiac: Murmur Present (2/6 ZULAY greatest at cardiac base) Results - Vitals Vitals: Vital Signs - 24 hr 07/17/22 07/17/22 07/17/22 19:51 20:26 20:50 Temperature 36.8 C 37.1 C Heart Rate 93 93 89 Respiratory 20 28 H 23 Rate Blood Pressure 110/70 110/77 115/83 H O2 Saturation 97 97 98 If not protocol : Oxygen Flow, liters/minute 07/17/22 07/17/22 07/17/22 21:00 21:30 22:00 Temperature Heart Rate 93 97 94 Respiratory 20 20 25 H Rate Blood Pressure 110/80 113/81 H 112/82 H O2 Saturation 95 95 96 If not protocol : Oxygen Flow, liters/minute 07/17/22 07/17/22 07/17/22 22:30 23:00 23:30 Temperature Heart Rate 95 86 86 Respiratory 18 22 24 Rate Blood Pressure 111/84 H 113/80 111/82 H O2 Saturation 94 99 99 If not protocol : Oxygen Flow, liters/minute 07/18/22 07/18/22 07/18/22 00:00 00:28 02:28 Temperature Heart Rate 89 84 90 Respiratory 23 19 20 Rate Blood Pressure 109/85 H 112/80 105/83 H O2 Saturation 100 98 98 If not protocol 2 : Oxygen Flow, liters/minute 07/18/22 07/18/22 07/18/22 04:00 06:00 08:00 Temperature Heart Rate 81 86 87 Respiratory 19 20 11 L Rate Blood Pressure 101/79 108/83 H 116/87 H O2 Saturation 98 99 94 If not protocol 2 2 4 : Oxygen Flow, liters/minute 07/18/22 07/18/22 07/18/22 08:30 08:55 10:00 Temperature Heart Rate 90 82 Respiratory 26 H 22 Rate Blood Pressure 120/82 H 102/87 H O2 Saturation 88 L 92 96 If not protocol 2 2 : Oxygen Flow, liters/minute Oxygen O2 Source Nasal cannula - EKG (time done) No standard instances Rate: Rate (enter#) (94) Rhythm: NSR Intervals: LBBB Compare to prior EKG: Unchanged from prior EKG (LBBB noted on previous EKG (05/14/19)) - Labs Labs: Laboratory Tests 07/17/22 07/17/22 07/17/22 20:11 20:11 20:11 WBC 14.4 H RBC 4.16 L Hgb 11.0 L Hct 35.3 L MCV 84.9 MCH 26.4 L MCHC 31.2 L RDW 15.0 Plt Count 248 MPV 10.3 Neut # (Auto) 8.7 H Lymph # (Auto) 4.5 H [place] # (Auto) 1.2 H Eos # (Auto) 0.0 Baso # (Auto) 0.0 Absolute Nucleated RBC 0.00 Nucleated RBC % 0.0 APTT Sodium 136 Potassium 4.8 Chloride 101 Carbon Dioxide 22 Anion Gap 13.0 BUN 51 H Creatinine 1.4 H Estimated GFR (MDRD) 49 L Glucose 164 H Calcium 9.1 Total Bilirubin 1.5 H AST 261 H ALT 244 H Alkaline Phosphatase 102 Troponin I High Sens 58818.8 H* B-Natriuretic Peptide Total Protein 6.7 Albumin 3.8 Globulin 2.9 Albumin/Globulin Ratio 1.3 Lipase 17 L SARS-CoV-2 (PCR) 07/17/22 07/17/22 07/18/22 20:11 21:56 05:49 WBC 15.1 H RBC 4.62 L Hgb 12.3 L Hct 39.6 L MCV 85.7 MCH 26.6 L MCHC 31.1 L RDW 14.9 Plt Count 195 MPV 10.5 Neut # (Auto) 8.9 H Lymph # (Auto) 4.8 H [place] # (Auto) 1.2 H Eos # (Auto) 0.1 Baso # (Auto) 0.0 Absolute Nucleated RBC 0.00 Nucleated RBC % 0.0 APTT Sodium Potassium Chloride Carbon Dioxide Anion Gap BUN Creatinine Estimated GFR (MDRD) Glucose Calcium Total Bilirubin AST ALT Alkaline Phosphatase Troponin I High Sens B-Natriuretic Peptide 6093.00 H Total Protein Albumin Globulin Albumin/Globulin Ratio Lipase SARS-CoV-2 (PCR) NOT DETECTED 07/18/22 07/18/2207/18/22 05:49 05:49 05:49 WBC RBC Hgb Hct MCV MCH MCHC RDW Plt Count MPV Neut # (Auto) Lymph # (Auto) [place] # (Auto) Eos # (Auto) Baso # (Auto) Absolute Nucleated RBC Nucleated RBC % APTT 30.5 Sodium 136 Potassium 4.6 Chloride 99 L Carbon Dioxide 21 Anion Gap 16.0 H BUN 55 H Creatinine 1.4 H Estimated GFR (MDRD) 49 L Glucose 166 H Calcium 9.1 Total Bilirubin AST ALT Alkaline Phosphatase Troponin I High Sens 57022.5 H* B-Natriuretic Peptide Total Protein Albumin Globulin Albumin/Globulin Ratio Lipase SARS-CoV-2 (PCR) - Rads (name of study) chest xray Radiology: Prelim report reviewed, See rad report PD MEDICAL DECISION MAKING - ED course Complexity details: reviewed old records, reviewed results, re-evaluated patient, considered differential, d/w patient, d/w family ED course: markedly elevated hs-cTn (over 12K), BNP over 6K and CXR c/w CHF. EKG with LBBB (not new). Mildly elevated LFTs. Suspect NSTEMI leading to new-onset CHF, possible hepatic congestion (although he also has h/o hepatitis C). Heparin drip is initiated , atorvastatin and aspirin ordered. No beds available at appropriate [facility] and thus [facility] is consulted to work on finding bed availability at appropriate facility. Care of patient turned over to oncoming ED physician at end of my shift pending disposition. Departure - Departure Disposition: 02 Transfer Acute Care Hosp Clinical Impression: NSTEMI (non-ST elevated myocardial infarction) Condition: Stable
[2022-07-17] MEDS ORDERED: ASPIRIN CHEW 81 MG TABLET PO STA (22:21)
[2022-07-17] MEDS ORDERED: ATORVASTATIN 40 MG TABLET PO STA (22:22)
--- NOTE | 2022-07-17 22:22 | XRAY Report ---
PROCEDURE: Chest 1 View X-Ray INDICATIONS: Chest pain TECHNIQUE: One view of the chest was acquired. COMPARISON: Chest x-ray 04/20/2017. FINDINGS: Surgical changes and devices: None. Lungs and pleura: There is diffuse pulmonary edema bilaterally. Hyperinflation of the lungs with fla ttening of the hemidiaphragms are demonstrated bilaterally compatible with COPD. No pleural effusions or pneumothorax. Mediastinum: Mediastinal contours appear unchanged. Heart size is enlarged. Bones and chest wall: No suspicious bony lesions. Overlying soft tissues appear unremarkable. IMPRESSION: 1. Cardiomegaly and pulmonary edema consistent with congestive heart failure. 2. Findings compatible with COPD. Reviewed by: Arturo Harvey MD on 07/17/2022 10:21 PM PST Approved by: Arturo Harvey MD on 07/17/2022 10:21 PM PST Station ID: [id number]
[2022-07-17] MEDS ORDERED: HEPARIN 25000UNITS/500ML (D5W) 25,000 UNIT/500 ML BAG IV SCH (23:00)
[2022-07-18] MEDS ORDERED: FUROSEMIDE 40 MG/4 ML VIAL IVP STA (00:37)
[2022-07-18 05:56] LABS: BASOPHILS % (AUTO) 0.1 %; EOSINOPHILS # (AUTO) 0.1 10^3/uL (0.0-0.7); EOSINOPHILS % (AUTO) 0.9 %; HCT - HEMATOCRIT 39.6 % (42.0-52.0); HGB - HEMOGLOBIN 12.3 g/dL (14.0-18.0); LYMPHOCYTES # (AUTO) 4.8 10^3/uL (1.5-3.5); LYMPHOCYTES % (AUTO) 31.7 %; MEAN CORPUSCULAR HEMOGLOBIN 26.6 pg (27.0-31.0); MEAN CORPUSCULAR HGB CONC 31.1 g/dL (32.0-36.0); MEAN CORPUSCULAR VOLUME 85.7 fL (80.0-94.0); MEAN PLATELET VOLUME 10.5 fL (7.4-11.4); MONOCYTES # (AUTO) 1.2 10^3/uL (0.0-1.0); MONOCYTES % (AUTO) 7.7 %; NEUTROPHILS # (AUTO) 8.9 10^3/uL (1.5-6.6); NEUTROPHILS % (AUTO) 59.1 %; PLT - PLATELET COUNT 195 10^3/uL (130-450); RED BLOOD COUNT 4.62 10^6/uL (4.70-6.10); RED CELL DISTRIBUTION WIDTH 14.9 % (12.0-15.0); WHITE BLOOD COUNT 15.1 x10^3/uL (4.8-10.8)
[2022-07-18 06:13] LABS: CALCIUM 9.1 mg/dL (8.5-10.3); CREATININE 1.4 mg/dL (0.6-1.2); POTASSIUM 4.6 mmol/L (3.5-5.0)
[2022-07-18] MEDS ORDERED: ASPIRIN CHEW 81 MG TABLET PO SCH (09:00)
[2022-07-18] MEDS ORDERED: ATORVASTATIN 40 MG TABLET PO SCH (09:00)
--- NOTE | 2022-07-18 10:15 | ED Physician Documentation ---
ED Addendum - Addendum Addendum: Subjective:Denies any current chest pain or difficulty breathing. Objective: Mild crackles at the bases, regular rate; Assessment:NSTEMI; CHF Plan:Awaiting transfer to facility with cardiology capabilities. Echo has been ordered for today. Repeat EKG Obtained at 747 as nurse was concerned that there may have been a rhythm change on the monitor. Rate 86, normal sinus rhythm, left bundle branch block, no significant change from previous EKG on 07/17/2022 at 1950 07/18/22 17:10 D/W Dr. Magana (Cardiology) and Dr. Disha Tovar (Hospitalist) at [facility] in [place]. They have graciously excepted the patient for transfer as an inpatient and agree with her current management. Departure - Departure Disposition: 02 Transfer Acute Care Hosp Clinical Impression: NSTEMI (non-ST elevated myocardial infarction) Condition: Stable
[2022-07-18 18:48] VITALS: BP 103/78
== END 2022-07-18 19:15 | disposition short-term general hospital (02) ==
LOC: ED 19:42
DX: I21.4 Non-ST elevation (NSTEMI) myocardial infarction (principal); I50.9 Heart failure, unspecified; I25.119 Atherosclerotic heart disease of native coronary artery with unspecified angina pectoris; I11.0 Hypertensive heart disease with heart failure; I44.7 Left bundle-branch block, unspecified; I35.0 Nonrheumatic aortic (valve) stenosis; I25.2 Old myocardial infarction; B19.20 Unspecified viral hepatitis C without hepatic coma; Z86.73 Personal history of transient ischemic attack (TIA), and cerebral infarction without residual deficits; Z79.02 Long term (current) use of antithrombotics/antiplatelets; F17.200 Nicotine dependence, unspecified, uncomplicated
CPT/HCPCS: 36415; 71045; 80048; 80053; 83690; 83880; 84484; 85025; 85730; 87635; 93005; 93306; 96365; 96366; 96375; 96376; 99284; 99285; A9270

== ENCOUNTER 2022-07-18 19:20 | Outpatient (CLI) | payer OTHER | END 2022-07-18 23:59 | disposition short-term general hospital (02) | LOC: EMS 19:20 | PROVIDERS: ATTEND Emergency Medicine | DX: I21.4 Non-ST elevation (NSTEMI) myocardial infarction (principal); I50.9 Heart failure, unspecified | CPT/HCPCS: A0425; A0426 ==